=== PATIENT | female | born 2000 | race Caucasian/White ===

== ENCOUNTER 2022-08-13 03:15 | Emergency (ER) | payer OTHER ==
[~2022-08-13] VITALS: Ht 167.6 cm; Wt 88.7 kg
[2022-08-13] MEDS ORDERED: ETOMIDATE INJ 20MG/10ML VIAL ONE (03:16)
[2022-08-13] MEDS ORDERED: VECURONIUM BROMIDE 10MG VIAL ONE (03:16)
[2022-08-13] MEDS ORDERED: ROCURONIUM BROMIDE 50MG/5ML VIAL ONE (03:16)
[2022-08-13] MEDS ORDERED: NS 1,000 ML IV STA (03:25)
[2022-08-13] MEDS ORDERED: ETOMIDATE INJ 20MG/10ML VIAL IV STA (03:25)
[2022-08-13] MEDS ORDERED: VECURONIUM BROMIDE 10MG VIAL IV STA ×2 (03:25→03:30)
[2022-08-13] MEDS ORDERED: MIDAZOLAM INJ 2MG/2ML VIAL IV STA ×2 (03:25→03:50)
[2022-08-13] MEDS ORDERED: MIDAZOLAM INJ 2MG/2ML VIAL As Ordered ONE (03:26)
[2022-08-13] MEDS ORDERED: SUCCINYLCHOLINE INJ 200MG/10ML VIAL IV STA (03:30)
[2022-08-13] MEDS ORDERED: MIDAZOLAM 100MG/100ML-0.9%NACL 100 MG in IV 1 EA IV SCH (03:35)
[2022-08-13] MEDS ORDERED: LIDOCAINE 2% 5ML JELLY UROJET TOP ONE (03:35)
[2022-08-13 03:59] LABS: ABG BASE EXCESS -9.2 (-2.0-2.0); ABG HCO3 15.2 MEQ/L (22.0-26.0); ABG O2 SATURATION 99.4 % (95.0-99.0); ABG PARTIAL PRESSURE CO2 28.9 mmHg (35.0-45.0); ABG PARTIAL PRESSURE O2 244.1 mmHg (75.0-100.0); ABG STANDARD HCO3 17.1 MEQ/L (22.0-26.0); ABG TOTAL CO2 16.1 MEQ/L (22.0-29.0)
[2022-08-13 04:07] VITALS: BP 169/113
[2022-08-13] MEDS ORDERED: fentaNYL 100 MCG/2 ML INJECTION IV ONE (04:10)
[2022-08-13 04:24] LABS: APPEARANCE, URINE MANUAL CLEAR (CLEAR); COLOR, URINE MANUAL YELLOW (YELLOW); PH,URINE MAN 6.5 UNITS (5.0 - 7.0); SPECIFIC GRAVITY,URINE MANUAL 1.005 (1.002-1.035)
[2022-08-13 04:25] LABS: BILIRUBIN, URINE MANUAL NEGATIVE (NEGATIVE); BLOOD URINE MANUAL POSITIVE (NEGATIVE); GLUCOSE, URINE (UA) MANUAL NEGATIVE (NEGATIVE); KETONE, URINE MANUAL NEGATIVE (NEGATIVE); LEUKOCYTE ESTERASE, URINE MAN TRACE (NEGATIVE); NITRITE, URINE MANUAL NEGATIVE (NEGATIVE); PROTEIN, URINE MANUAL TRACE mg/dL (NEGATIVE); UROBILINOGEN, URINE MANUAL NORMAL (NORMAL)
[2022-08-13] MEDS ORDERED: ROCURONIUM BROMIDE 50MG/5ML VIAL IV ONE (04:25)
[2022-08-13 04:27] LABS: AMPHETAMINES LEVEL URINE NEGATIVE (NEGATIVE); BARBITURATES URINE NEGATIVE (NEGATIVE); COCAINE METABOLITE URINE NEGATIVE (NEGATIVE); METHADONE URINE NEGATIVE (NEGATIVE); OPIATES URINE NEGATIVE (NEGATIVE); PHENCYCLIDINE URINE NEGATIVE (NEGATIVE)
[2022-08-13 04:27] LABS: RSV AMPLIFICATION NEGATIVE (NEGATIVE)
[2022-08-13 04:40] LABS: BACTERIA, URINE MOD AMOUNT; HYALINE CAST, URINE NONE SEEN /lpf (0-1); MUCUS, URINE SMALL AMOUNT (NEGATIVE); SQUAMOUS EPITHELIAL CELL URINE SMALL AMOUNT /hpf (SMALL AMT)
[2022-08-13 04:42] LABS: BENZODIAZEPINES URINE POSITIVE (NEGATIVE); CANNABINOIDS URINE POSITIVE (NEGATIVE)
== END 2022-08-13 04:47 | disposition short-term general hospital (02) ==
LOC: M ED 03:15 → EDBD 03:15 → M ED 04:47
DX: S09.90XA Unspecified injury of head, initial encounter (principal); S02.609A Fracture of mandible, unspecified, initial encounter for closed fracture; V47.5XXA Car driver injured in collision with fixed or stationary object in traffic accident, initial encounter
CPT/HCPCS: 36600; 51702; 71045; 72170; 80307; 81000; 81015; 82803; 87631; 93041; 94760; 96365; 96375; 96376; 99285; J0330

== ENCOUNTER → 2023-11-25 | Outpatient (REF) | payer OTHER ==
[2023-11-26 12:15] LABS: Trichomonas vaginalis (AMP) NOT DETECTED (NEGATIVE)
[2023-11-26 12:39] LABS: GC DNA AMPLIFICATION NEGATIVE (NEGATIVE)
== END ==
LOC: M LAB REF 09:17
PROVIDERS: ATTEND Physician Assistant
DX: N10 Acute pyelonephritis (principal)